=== PATIENT | male | born 1975 | race Caucasian/White ===

== ENCOUNTER 2018-12-12 18:42 | Emergency (ER) | payer SELFPAY ==
[~2018-12-12] VITALS: Ht 170.2 cm; Wt 80.5 kg
[~2018-12-12 18:42] MED LIST: PRED20TA PO
[2018-12-12 18:52] VITALS: BP 143/107; PULSE 74; RESP 18; Ht 170.2 cm; Wt 80.5 kg
[2018-12-12] MEDS ORDERED: predniSONE 20 MG TAB PO ONE (20:30)
[2018-12-12] MEDS ORDERED: DEXAMETHASONE 0.1% 5 ML OPH BOTH EYES ONE (20:30)
== END 2018-12-12 21:31 | disposition home or self-care (01) ==
LOC: FTE 18:42
DX: H15.103 Unspecified episcleritis, bilateral (principal)
CPT/HCPCS: 99283; J7512